=== PATIENT | female | born 1970 | race Hispanic/Latino ===

== ENCOUNTER 2019-04-20 14:48 | Emergency (ER) | payer OTHER, SELFPAY ==
--- NOTE | ~2019-04-20 | CT_ITS ---
EXAMINATION: CT brain wo con EXAM DATE: 04/20/2019 15:47 INDICATION: Headache, dizziness. TECHNIQUE: Spiral CT of the head was performed without contrast. Axial, coronal and sagittal images were reviewed. The dose-length product (DLP) for this examination was 605.33 mGy-cm. The exposure w as tailored according to patient size, and iterative reconstruction (ASIR) was used as additional dos e reduction technique. Comparison is made to prior examination from 06/12/2013. FINDINGS: There is no acute intraparenchymal hemorrhage. No evidence of intraparenchymal brain mass lesion. No evidence of acute infarction. There is no mass effect or midline shift. The ventricles are normal in size. There are no extra-axial collections. There are no acute calvarial fractures. T he orbits are unremarkable. Soft tissue is unremarkable. The visualized sinuses and mastoid air simone ls are well aerated. IMPRESSION: 1. Normal head CT examination. Reviewed, dictated and finalized at location A. [employer]
[2019-04-20 15:04] VITALS: BP 190/115; PULSE 111; RESP 18; TEMP 37; O2SAT 100
--- NOTE | 2019-04-20 15:14 | ED.HA ---
HPI - Headache General Chief Complaint: Headache Stated Complaint: migraine, dizzy when driving Time Seen by Provider: 04/20/19 15:11 Source: patient Mode of arrival: ambulatory Limitations: no limitations History of Present Illness HPI Narrative: The pt is a 48 y/o female who presents to the ED c/o migraines onset 9 days ago. Pt states that she typically gets these with her periods. Pt states that her pain is improved with rest. She notes that four days ago, she began to experience nausea and dizziness while driving. She went to her PCP 3 days ago for this. Pt states that she tried to drive again today and began to experience this again, so she came here. Pt reports difficulty concentrating, but denies numbness/tingling. MD elicited complaint: migraine Onset (ago): day(s) (9) Relieving factors: rest Context: other (Menstruation occurring currently) Associated symptoms: nausea and other (Dizziness, difficulty concentrating) Related Data Allergies Allergy/AdvReac Type Severity Reaction Status Date / Time shellfish derived Allergy Severe THROAT Verified 09/28/18 10:48 SWELLING dextromethorphan Allergy Mild N/V, Verified 09/28/18 10:48 HEADACHE doxylamine Allergy Mild N/V, Verified 09/28/18 10:48 HEADACHE oxytocin Allergy Mild PAIN/SWELLING Verified 09/28/18 10:48 IN ARM Penicillins Allergy Mild Unknown Verified 09/28/18 10:48 prochlorperazine Allergy Mild LOCK JAW Verified 09/28/18 10:48 pseudoephedrine Allergy Mild N/V, Verified 09/28/18 10:48 HEADACHE sulfamethoxazole Allergy Mild N/V, Verified 09/28/18 10:48 HEADACHE, RASH trimethoprim Allergy Mild Nausea and Verified 09/28/18 10:48 Vomiting Review of Systems Review of Systems: All systems reviewed & are unremarkable except as noted in HPI and below Gastrointestinal: Gastrointestinal: Reports nausea Neurologic: Reports dizziness, Reports headache(s) ( Migraines ), Denies numbness, Denies tingling and Reports other (Difficulty concentrating) PMFSH Past Medical History Medical History (Updated 04/20/19 @ 19:48 by Scott Solis DO) Abnormal uterine bleeding Anemia Angina at rest Asthma Fibroids Heart murmur HLD (hyperlipidemia) HTN (hypertension) Lichen sclerosus Migraine During menstruation Uterine polyp Surgical History Surgical History (Updated 04/20/19 @ 15:24 by Lele Angela) H/O section Social History Social History (Updated 04/20/19 @ 15:24 by Lele Angela) Smoking status: Never smoker Comments PCP: Dr. Miner Exam Narrative: Exam Narrative: APPEARANCE: No acute distress, nontoxic, resting in bed HEENT: Normocephalic, atraumatic, OMM, TMs clear bilaterally EYES: PERRL, EOMI NECK: Supple, nontender, full range of motion without pain, no meningismus RESPIRATORY: No respiratory distress, clear to auscultation bilaterally with no rhonchi wheezing or rales CARDIOVASCULAR: RRR s murmur ABDOMINAL: Soft, nontender, nondistended MUSCULOSKELETAL: Moves all extremities. No clubbing, cyanosis or edema. NEURO: A and O ?3, following commands, speech normal, cranial nerves II through XII grossly intact,muscle strength 5 out of 5 bilateral upper and lower extremities SKIN:: Warm, dry. Normal Color PSYCHIATRIC: Normal affect/mood Course Course Emergency Course: Patient states she had been on blood pressure medication was taken off of it last May when she went on weight watchers in the last over 30 pounds. Patient states she is feeling better at this time. Able to get up and ambulate with no difficulty. Called and discussed with Dr. Valadez for patient's primary care physician Dr. miner we discussed the patient renal blood pressure medication likely need new blood pressure medication at this time request patient started on atenolol 50 mg daily Discussed with patient restarting blood pressure medication. Discussed atenolol. The patient states she is very sensitive to blood pressure medication. S
--- NOTE | 2019-04-20 15:18 | ECG_ITS ---
Measurements Intervals [place] Rate: 101 P: 48 MT: 139 QRS: 45 QRSD: 86 T: 8 QT: 349 QTc: 453 Interpretive Statements SINUS TACHYCARDIA ABNORMAL ECG Electronically Signed On 04-21-2019 8:12:45 CDT by Chito Hillman D.O.
[2019-04-20 15:34] LABS: Basophils Percent Auto 0.5 % (0.2-1.2); Eosinophils Absolute Auto 0.1 K/mm3 (0-0.3); Eosinophils Percent Auto 0.8 % (0-4.4); Hematocrit 36.5 % (37.0-47.0); Hemoglobin 10.7 g/dL (12.0-15.0); Immature Granulocyte Absolute 0.03 K/mm3 (0.00-0.031); Immature Granulocyte Percent A 0.3 % (0-0.5); Lymphocytes Percent Auto 30.3 % (18.3-44.2); Mean Corpuscular HGB Conc 29.3 g/dl (32-36); Mean Corpuscular Hemoglobin 21.4 pg (26-34); Mean Corpuscular Volume 72.9 fl (80-100); Monocytes Absolute Auto 0.7 K/mm3 (0.1-0.6); Monocytes Percent Auto 7.7 % (2.6-8.5); Neutrophils Absolute Auto 5.2 K/mm3 (1.3-6.7); Neutrophils Percent Auto 60.4 % (45.5-73.1); Platelet Count Result 420 k/mm3 (150-375); Red Blood Count 5.01 M/mm3 (4.2-5.4); Red Cell Distribution Width 18.6 % (11.5-14.5); White Blood Count 8.6 K/mm3 (4.5-10.0)
[2019-04-20 15:41] LABS: Potassium 3.8 mmol/L (3.4-5.0)
[2019-04-20 15:43] LABS: Alanine Aminotransferase 28 U/L (4-35); Albumin Level 4.5 g/dL (3.5-5.1); Alkaline Phosphatase 66 U/L (38-126); Anisocytosis 1+ (NORMAL); Aspartate Amino Transferase 26 U/L (14-36); Bilirubin,Total 0.2 mg/dL (0.2-1.3); Blood Urea Nitrogen 13 mg/dL (7-17); Calcium 9.3 mg/dL (8.4-10.2); Carbon Dioxide 23 mmol/L (22-30); Chloride 107 mmol/L (98-107); Estimated CRCL calculation 96 ml/min; Estimated Glomerular Filt Rate > 60; Glucose 103 mg/dL (65-105); Hypochromasia 1+ (NORMAL); Platelet Estimate Adequate (Adequate); Prothrombin Time 13.1 Seconds (11.1-14.7); Sodium 140 mmol/L (137-145)
[2019-04-20 15:44] LABS: Partial Thromboplastin Time 26.9 SECONDS (22.3-36.8)
[2019-04-20 15:53] LABS: Troponin I < 0.012 ng/mL (0.000-0.034)
[2019-04-20] MEDS: SODIUM CHLORIDE 0.9% IV 1,000 ML 999 ML IV CONT (15:57)
[2019-04-20 16:29] LABS: Add Urine Microscopic? YES; Appearance Urine Clear (Clear); Bilirubin Urine Negative (Negative); Blood Urine 1+ (Negative); Color Urine Colorless (Yellow); Glucose Urine UA Negative (Negative); Ketones Urine Negative (Negative); Leukocyte Esterase Ur Negative LEU/UL (Negative); Nitrate Urine Negative (Negative); Protein Urine Negative (Negative); Specific Grav Ur 1.005 (1.001-1.035); Squamous Epithelial Cell Urine Rare /hpf (Few); Urobilinogen Urine Negative mg/dL (<2.0); WBC Urine 0-3 /hpf
[2019-04-20] MEDS: KETOROLAC 30 MG/ML VIAL (*BKC) IV PUSH (17:13)
[2019-04-20 17:14] VITALS: BP 179/104; PULSE 92; RESP 20; O2SAT 99
[2019-04-20 18:22] VITALS: BP 152/96; PULSE 100; RESP 20; O2SAT 97
--- NOTE | 2019-04-20 19:16 | PC.NURSE ---
Pt ambulated around nurses station without difficulty. Pt states her head feels better but headache is not gone. EDp made aware.
[2019-04-20 20:02] VITALS: BP 145/80; PULSE 80; RESP 20; TEMP 36.7; O2SAT 98
== END 2019-04-20 20:19 | disposition home or self-care (01) ==
PROVIDERS: Emergency Provider Emergency Medicine; PCP Family Medicine
DX: R51 Headache (principal); I10 Essential (primary) hypertension; J45.909 Unspecified asthma, uncomplicated; E78.5 Hyperlipidemia, unspecified; L90.0 Lichen sclerosus et atrophicus; R00.0 Tachycardia, unspecified
CPT/HCPCS: 36415; 70450; 80053; 81001; 81025; 84484; 85025; 85610; 85730; 93005; 96361; 96365; 96375; 99284; J0131; J1200; J1885; J7030

== ENCOUNTER 2019-07-14 12:04 | Emergency (ER) | payer OTHER, SELFPAY ==
--- NOTE | ~2019-07-14 | XR_ITS ---
EXAMINATION: XR chest 2V 07/14/2019 12:33 INDICATION: Shortness of breath PROCEDURE: 2 view chest COMPARISON: No prior studies for comparison. FINDINGS: The lungs are clear. The cardiomediastinal silhouette is within normal limits. There are no pleural effusions. There is no pneumothorax suspected. IMPRESSION: 1: NO ACUTE CARDIOPULMONARY DISEASE. Reviewed, dictated and finalized at location A.
--- NOTE | ~2019-07-14 | CT_ITS ---
EXAMINATION: CTA chest PE protocol DATE: 07/14/2019 14:00 CDT INDICATION: Dyspnea. Tachycardia. TECHNIQUE: Computed tomographic angiography (CTA) of the chest was performed with 100 mL Omnipaque-35 0 intravenous contrast. The dose-length product was 518.08 mGy-cm. Maximum intensity projection 3D-re constructions of the aorta and other arteries were constructed by the technologist on a separate work station. Automated exposure control and iterative reconstruction technique were employed. COMPARISON: CT dated 04/22/2014 FINDINGS: Study is technically adequate without evidence for pulmonary embolism. No thoracic lymphade nopathy. No significant pleural or pericardial effusion. Heart size is normal. Small hiatal hernia. N o endobronchial lesions. No focal airspace consolidation. No evidence for pneumonia or edema. The upp er abdomen is unremarkable. Mild thoracic spondylosis. No evidence for aortic aneurysm or dissection. IMPRESSION: 1. No evidence for pulmonary embolism. No acute cardiopulmonary disease. Reviewed, dictated and finalized at location A.
[2019-07-14 12:06] VITALS: BP 155/97; PULSE 124; RESP 18; TEMP 36.7; O2SAT 100
--- NOTE | 2019-07-14 12:15 | ECG_ITS ---
Measurements Intervals [place] Rate: 120 P: 61 SC: 133 QRS: 59 QRSD: 83 T: 16 QT: 339 QTc: 479 Interpretive Statements SINUS TACHYCARDIA NONSPECIFIC ST & T-WAVE ABNORMALITY- ANTEROLAT/INF LEADS BASELINE WANDER- I, II, III ABNORMAL ECG Electronically Signed On 07-15-2019 13:31:54 CDT by Chito Hillman D.O.
[2019-07-14 12:26] LABS: Basophils Percent Auto 0.3 % (0.2-1.2); Eosinophils Percent Auto 0.3 % (0-4.4); Hematocrit 37.2 % (37.0-47.0); Hemoglobin 11.3 g/dL (12.0-15.0); Immature Granulocyte Absolute 0.06 K/mm3 (0.00-0.031); Immature Granulocyte Percent A 0.5 % (0-0.5); Lymphocytes Percent Auto 19.3 % (18.3-44.2); Mean Corpuscular HGB Conc 30.4 g/dl (32-36); Mean Corpuscular Hemoglobin 22.5 pg (26-34); Mean Corpuscular Volume 74.1 fl (80-100); Mean Platelet Volume 10.6 fl (7.4-10.4); Monocytes Absolute Auto 0.8 K/mm3 (0.1-0.6); Monocytes Percent Auto 6.3 % (2.6-8.5); Neutrophils Absolute Auto 8.7 K/mm3 (1.3-6.7); Neutrophils Percent Auto 73.3 % (45.5-73.1); Platelet Count Result 517 k/mm3 (150-375); Red Blood Count 5.02 M/mm3 (4.2-5.4); Red Cell Distribution Width 16.2 % (11.5-14.5); White Blood Count 11.9 K/mm3 (4.5-10.0)
[2019-07-14 12:27] VITALS: PULSE 128
--- NOTE | 2019-07-14 12:30 | PC.NURSE ---
Pt states she was cleaning a couple weeks ago and then started having SOB. Pt states her albuterol inhaler was not working. Pt states she was given steroid taper by her PCP. Pt states the steroids made her BP elevate. Pt states she last took steroids 5 days ago. Pt states she has had 2 wks of unrelieved SOB. Pt states she has only taken albuterol inhaler due to flovent made her breathing worse. Pt states she was supposed to change her BP meds but the asthma flair up started and the PCP wanted to get her breathing under control first. Pt can't lay flat. Pt not using any accessory muscles. Pt not doing pursed lip breathing or nasal flaring. Pt is A&Ox4. Pt has family at bedside. Pt has call light in reach. Pt lung sounds diminished throughout.
--- NOTE | 2019-07-14 12:32 | ED.GENADULT ---
HPI - General Adult General Chief complaint: Unspecified Stated complaint: asthma Time Seen by Provider: 07/14/19 12:22 Source: patient Mode of arrival: ambulatory Limitations: no limitations History of Present Illness HPI narrative: Patient is a 49-year-old female who presents for evaluation of shortness of breath. Patient reports 2 weeks of worsening shortness of breath, and a tight sensation under her breasts. Patient also reports back pain without shoulder or neck pain. She reports that this is been going on for 2 weeks, initially she and her primary care provider attributed this to her asthma, patient has been on DuoNeb treatments, steroid treatments without any improvement in her symptoms. No lower leg swelling, lower leg pain or redness. No history of blood clot. No recent travel. Patient reports dry cough without congestion. No coronavirus exposures, patient otherwise works at a [employer] business, but otherwise has been isolating at home. No recent sick contacts. No flank pain, myalgias or diarrhea. No fever. No recent surgeries or recent immobility. Related Data Allergies Allergy/AdvReac Type Severity Reaction Status Date / Time shellfish derived Allergy Severe THROAT Verified 09/28/18 10:48 SWELLING dextromethorphan Allergy Mild N/V, Verified 09/28/18 10:48 HEADACHE doxylamine Allergy Mild N/V, Verified 09/28/18 10:48 HEADACHE oxytocin Allergy Mild PAIN/SWELLING Verified 09/28/18 10:48 IN ARM Penicillins Allergy Mild Unknown Verified 09/28/18 10:48 prochlorperazine Allergy Mild LOCK JAW Verified 09/28/18 10:48 pseudoephedrine Allergy Mild N/V, Verified 09/28/18 10:48 HEADACHE sulfamethoxazole Allergy Mild N/V, Verified 09/28/18 10:48 HEADACHE, RASH trimethoprim Allergy Mild Nausea and Verified 09/28/18 10:48 Vomiting Review of Systems Review of Systems: Narrative: CONSTITUTIONAL: Denies fever, chills, or sweats. EYES: Denies visual changes, redness, or discharge. ENT: Reports rhinorrhea and congestion CARDIOVASCULAR: Reports chest pain and palpitations RESPIRATORY: Reports dry cough and shortness of breath GASTROINTESTINAL: Denies abdominal pain, nausea, vomiting, or diarrhea. GENITOURINARY: Denies dysuria or hematuria. SKIN: Denies rash or itching. MUSCULOSKELETAL: Denies back pain, joint pain, or myalgia. NEUROLOGIC: Denies headache, numbness, or weakness. [facility] Past Medical History Medical History Abnormal uterine bleeding Anemia Angina at rest Asthma Fibroids Heart murmur HLD (hyperlipidemia) HTN (hypertension) Lichen sclerosus Migraine During menstruation Uterine polyp Surgical History Surgical History H/O section Social History Social History Smoking status: Never smoker Gender identity (if verbalized by the patient): Female Exam Narrative: Exam Narrative: GENERAL: Awake, alert, conversant HEAD: Normocephalic, atraumatic. EYES: PERRLA and EOMI. ENT: Nares clear, no rhinorrhea or epistaxis. Mucous membranes moist. NECK: Supple. CHEST: No respiratory distress, breathing even and non labored, no chest wall tenderness HEART: Tachycardic rate, sinus rhythm ABDOMEN:Non distended, non tender EXTREMITIES: Normal range of motion. No edema. SKIN: Warm, dry, no rash. NEURO:No focal deficits. Alert and oriented x3 Course Course Emergency Course: Patient presented to the emergency department for evaluation of shortness of breath. At the time of initial assessment, ABCs are intact, vital signs notable for hypertension and tachycardia. Patient is afebrile, no infectious type symptoms. Symptoms have been present over 2 weeks and constant, the patient does not appear to be in any respiratory distress in the room. Oxygen saturation is 99% on room air, patient is able to speak in full s
[2019-07-14 12:37] LABS: Potassium 3.6 mmol/L (3.4-5.0)
[2019-07-14 12:42] LABS: Blood Urea Nitrogen 8 mg/dL (7-17); Calcium 9.5 mg/dL (8.4-10.2); Carbon Dioxide 20 mmol/L (22-30); Chloride 107 mmol/L (98-107); Estimated CRCL calculation 89 ml/min; Estimated Glomerular Filt Rate > 60; Glucose 130 mg/dL (65-105); Sodium 140 mmol/L (137-145)
[2019-07-14 13:08] LABS: NT Pro B Type Natriuretic Pept 26 PG/ML (5-100); Troponin I < 0.012 ng/mL (0.000-0.034)
--- NOTE | 2019-07-14 14:26 | PC.NURSE ---
PATIENT AMBULATED WITH PULSE OX. PATIENT'S OXYGEN SATURATION MAINTAINED AT 99-100%. WHEN FINISHED PT STATED SHE WAS WORKING HARDER TO BREATHE. EDP NOTIFIED.
== END 2019-07-14 14:37 | disposition home or self-care (01) ==
PROVIDERS: Emergency Provider Emergency Medicine; PCP Family Medicine
DX: R06.00 Dyspnea, unspecified (principal); R00.0 Tachycardia, unspecified; J45.909 Unspecified asthma, uncomplicated; E78.5 Hyperlipidemia, unspecified; I10 Essential (primary) hypertension; R94.31 Abnormal electrocardiogram [ECG] [EKG]
CPT/HCPCS: 36415; 71046; 71275; 80048; 81025; 83880; 84443; 84484; 85025; 93005; 99284; Q9967

== ENCOUNTER 2019-07-30 10:32 | Outpatient (CLI) | payer OTHER, SELFPAY ==
--- NOTE | 2019-07-30 10:41 | ECHO_ITS ---
Patient Info Name: Isis Fontana Age: 49 years : 1970 Gender: Female Ht: 63 in Wt: 194 lbs BSA: 2.02 m2 HR: 110 bpm BP: 158 / 103 mmHg Heart Rhythm: Sinus Rhythm Exam Date: 07/30/2019 10:58 AM Exam Location: [facility] Pulmonary Patient Status: Outpatient Admit Date: 07/30/2019 Staff Ordering Physician: Chito Hillman DO Justice Professor: Elizabeth Wolf RDCS Attending Provider: Chito Hillman DO Referring Physician: Rafy SHIRLEY; Exam Type: CA echo doppler color flow Study Info Indications R06.02 - Shortness of breath Complete two-dimensional, color flow and Doppler transthoracic echocardiogram is performed. Summary 1. Left ventricular chamber dimension is normal. 2. Left ventricular systolic function is normal, estimated at 55-60%. 3. The left ventricular diastolic function is grade I diastolic dysfunction. 4. E/e' 8 is minimally elevated. 5. Left atrial chamber dimension is mildly enlarged. 6. There is trace tricuspid valve regurgitation. Left Ventricle E/e' 8 is minimally elevated. Left ventricular chamber dimension is normal. Left ventricular systolic function is normal, estimated at 55-60%. The left ventricular diastolic function is grade I diastolic dysfunction. Right Ventricle Right ventricular chamber dimension is normal. Right ventricular systolic function is normal. Left Atria Left atrial chamber dimension is mildly enlarged. Right Atria Right atrial chamber dimension is normal. Aortic Valve The aortic valve is trileaflet. There is no aortic valve stenosis. There is no aortic valve regurgitation. Pulmonic Valve There is no pulmonic regurgitation. Mitral Valve There is no mitral valve stenosis. There is no mitral valve regurgitation. Tricuspid Valve There is trace tricuspid valve regurgitation. RVSP is not calculated due to an inadequate TR jet. Pericardium/Pleural There is no pericardial effusion. Inferior Vena Cava Normal inferior vena cava with >50% collapse upon inspiration consistent with normal right atrial pressure, 5 mmHg. Aorta The aortic root size at the sinus of Valsalva is normal. Left Ventricular Outflow Tract Name Value Normal LVOT 2D LVOT Diameter 1.9 cm LVOT Doppler LVOT Peak Gradient 4 mmHg LVOT Mean Gradient 2 mmHg LVOT VTI 26 cm LVOT VTI/AV VTI Ratio 0.8 LVOT Stroke Volume 72 ml LVOT CO 10.8 l/min LVOT CI 5.4 l/min/m2 Pulmonic Valve Name Value Normal RVOT Doppler RVOT Peak Gradient 2 mmHg PV Doppler PV Peak Gradient 4 mmHg Mitral Valve --------
== END 2019-07-30 10:33 | disposition home or self-care (01) ==
LOC: ANHCARD 10:34
PROVIDERS: PCP Family Medicine; Visit Provider Internal Medicine Cardiovascular Disease
DX: R06.02 Shortness of breath (principal)
CPT/HCPCS: 93306

== ENCOUNTER 2019-08-13 09:04 | Outpatient (CLI) | payer OTHER, SELFPAY ==
--- NOTE | ~2019-08-13 | XR_ITS ---
EXAMINATION: XR UGIAC wo kub DATE: 08/13/2019 09:56 INDICATION: Gastroesophageal reflux disease. TECHNIQUE: The patient drank thick barium, gas-producing crystals, and thin barium. A total of fluoro scopic images of the esophagus, stomach, and proximal small bowel were obtained. Fluoroscopy exposure time was minutes. COMPARISON: None. FINDINGS: The esophagus is normal without mass or stricture. Esophageal motility is normal. There is no hiatal hernia. There was recurrent gastroesophageal reflux of gas and moderate amount of contrast with provocative maneuvers. The stomach and proximal small bowel are normal. IMPRESSION: 1. Gastroesophageal reflux. Otherwise normal upper GI study. Reviewed, dictated and finalized at location A.
== END 2019-08-13 09:05 | disposition home or self-care (01) ==
LOC: ANHIMG 09:12
PROVIDERS: PCP Family Medicine; Visit Provider Family Medicine
DX: K21.9 Gastro-esophageal reflux disease without esophagitis (principal)
CPT/HCPCS: 74246

== ENCOUNTER 2022-08-14 17:22 | Emergency (ER) | payer SELFPAY ==
--- NOTE | ~2022-08-14 | CT_ITS ---
EXAMINATION: CT abdomen pelvis w con DATE: 08/14/2022 19:25 INDICATION: Left-sided flank pain radiating to the abdomen TECHNIQUE: Computed tomography (CT) of the abdomen and pelvis was performed with 100 mL Omnipaque-350 intravenous contrast. Automated exposure control and iterative reconstruction technique were employe d. The dose-length product was 1253.59 mGy-cm. COMPARISON: None FINDINGS: Lung bases are clear. Heart size is normal. No pericardial or pleural effusion. Diffuse hepatic steat osis with focal sparing along the gallbladder fossa. Gallbladder, spleen, pancreas, bilateral adrenal glands and kidneys are normal. Bowels including the appendix are normal. Bladder, anteverted uterus and bilateral adnexa are unremarkable. No free intraperitoneal gas or fluid. No pathologically enlarg ed abdominal or pelvic lymphadenopathy. Mild lumbar and lower thoracic spondylosis. IMPRESSION: 1. No urolithiasis or acute intra-abdominal/pelvic process. 2. Diffuse hepatic steatosis. Reviewed, dictated and finalized at location A.
[2022-08-14 17:23] VITALS: BP 162/109; PULSE 120; RESP 18; TEMP 36.4; O2SAT 99
[2022-08-14 17:41] VITALS: BP 200/107; PULSE 132; RESP 20; O2SAT 98
[2022-08-14 17:47] VITALS: BP 211/111; PULSE 125; RESP 12; O2SAT 94
[2022-08-14 17:54] LABS: Basophils Absolute Auto 0.1 K/mm3 (0.0-0.1); Basophils Percent Auto 0.5 % (0.2-1.2); Eosinophils Percent Auto 0.3 % (0-4.4); Hematocrit 45.7 % (37.0-47.0); Hemoglobin 14.7 g/dL (12.0-15.0); Immature Granulocyte Absolute 0.03 K/mm3 (0.00-0.031); Immature Granulocyte Percent A 0.3 % (0-0.5); Lymphocytes Absolute Auto 2.97 K/mm3 (0.9-3.2); Lymphocytes Percent Auto 29.3 % (18.3-44.2); Mean Corpuscular HGB Conc 32.2 g/dl (32-36); Mean Corpuscular Hemoglobin 26.3 pg (26-34); Mean Corpuscular Volume 81.8 fl (80-100); Mean Platelet Volume 10.4 fl (7.4-10.4); Monocytes Absolute Auto 0.9 K/mm3 (0.1-0.6); Monocytes Percent Auto 8.4 % (2.6-8.5); Neutrophils Absolute Auto 6.2 K/mm3 (1.3-6.7); Neutrophils Percent Auto 61.2 % (45.5-73.1); Platelet Count Result 396 k/mm3 (150-375); Red Blood Count 5.59 M/mm3 (4.2-5.4); Red Cell Distribution Width 14.1 % (11.5-14.5); White Blood Count 10.1 K/mm3 (4.5-10.0)
[2022-08-14 18:04] LABS: Alanine Aminotransferase 73 U/L (6-35); Albumin Level 5.1 g/dL (3.5-5.1); Alkaline Phosphatase 99 U/L (38-126); Anion Gap 12 mmol/L (8-16); Aspartate Amino Transferase 53 U/L (14-36); Bilirubin,Total 0.4 mg/dL (0.2-1.3); Blood Urea Nitrogen 11 mg/dL (7-17); Calcium 9.9 mg/dL (8.4-10.2); Carbon Dioxide 22 mmol/L (22-30); Chloride 108 mmol/L (98-107); Estimated CRCL calculation 91 ml/min; Estimated Glomerular Filt Rate > 60; Glucose 116 mg/dL (65-110); Lipase 161 U/L (23-300); Potassium 3.8 mmol/L (3.4-5.0); Sodium 142 mmol/L (137-145)
[2022-08-14 18:05] VITALS: PULSE 110; RESP 16; O2SAT 98
[2022-08-14 18:18] LABS: Appearance Urine Clear (Clear); Bacteria Urine None Seen /hpf; Bilirubin Urine Negative (Negative); Blood Urine Trace (Negative); Color Urine Yellow (Yellow); Glucose Urine UA Negative (Negative); Hyaline Casts Urine Present /lpf; Ketones Urine Negative (Negative); Leukocyte Esterase Ur Negative LEU/UL (Negative); Nitrate Urine Negative (Negative); Non Pathogenic Casts 0-2; Protein Urine Negative (Negative); RBC Urine 0-2 /hpf (0-2); Specific Grav Ur 1.004 (1.001-1.035); Squamous Epithelial Cell Urine None seen /hpf (Few); Urobilinogen Urine 0.2 mg/dL (<2.0); WBC Urine 0-5 /hpf; pH Urine 5.5 (5.0-9.0)
[2022-08-14 18:21] LABS: Add Urine Microscopic? YES
--- NOTE | 2022-08-14 18:33 | ED.ABDPAIN ---
HPI - Abdominal Pain General Chief Complaint: Urogenital-Female Stated Complaint: kidney stone Time Seen by Provider: 08/14/22 17:33 Source: patient Mode of arrival: ambulatory Limitations: no limitations History of Present Illness HPI narrative: This is a 52-year-old female that presents to the emergency department for left flank pain. Ongoing over the last week. Reports the pain is constant and radiates into the left side of her abdomen. Sometimes it is worse with certain movements. The pain is achy in nature. Associated with nausea. Denies fever, vomiting, diarrhea, dysuria, or hematuria. Related Data Home Medications Medication Instructions Recorded Confirmed albuterol 90 mcg/actuation aerosol 90 mcg inhalation .COMPLEX 07/22/19 07/23/19 inhaler clobetasol 0.05 % topical ointment 1 applic topical BID 07/22/19 07/23/19 multivitamin (Multiple Vitamins 1 tablet PO DAILY 07/23/19 07/23/19 tablet) Allergies Allergy/AdvReac Type Severity Reaction Status Date / Time shellfish derived Allergy Severe THROAT Verified 07/23/19 10:48 SWELLING dextromethorphan Allergy Mild N/V, Verified 07/23/19 10:48 HEADACHE doxylamine Allergy Mild N/V, Verified 07/23/19 10:48 HEADACHE oxytocin Allergy Mild PAIN/SWELLING Verified 07/23/19 10:48 IN ARM Penicillins Allergy Mild Unknown Verified 07/23/19 10:48 prochlorperazine Allergy Mild LOCK JAW Verified 07/23/19 10:48 pseudoephedrine Allergy Mild N/V, Verified 07/23/19 10:48 HEADACHE sulfamethoxazole Allergy Mild N/V, Verified 07/23/19 10:48 HEADACHE, RASH trimethoprim Allergy Mild Nausea and Verified 09/28/18 10:48 Vomiting Review of Systems Review of Systems: CONSTITUTIONAL: Denies fever GASTROINTESTINAL: Reports abdominal pain, nausea. Denies vomiting, or diarrhea. GENITOURINARY: Denies dysuria or hematuria. SKIN: Denies rash All systems reviewed & are unremarkable except as noted in HPI and below PMFSH Past Medical History Medical History (Updated 08/14/22 @ 19:51 by Sindy Chun PA-C) Abnormal uterine bleeding Anemia Angina at rest Asthma Fibroids Heart murmur HLD (hyperlipidemia) HTN (hypertension) Lichen sclerosus Migraine During menstruation Uterine polyp Surgical History Surgical History H/O section Social History Social History Smoking status: Never smoker Gender identity (if verbalized by the patient): Female Exam Narrative: GENERAL: Well-appearing, well-nourished, and in no acute distress. HEAD: Normocephalic, atraumatic. EYES: EOMI. CHEST: Clear to auscultation. No respiratory distress. No wheezes rales or rhonchi HEART: Regular rate and rhythm. No murmur heard. Normal peripheral pulses. ABDOMEN: Soft, nondistended, normal active bowel sounds. Tender to palpation of the left mid to lower abdomen. No CVA tenderness EXTREMITIES: Normal range of motion. No edema. SKIN: Warm, dry, no rash. NEURO: No focal deficits. Alert and oriented x3. PSYCH: Normal mood and affect Course Vital Signs Vital signs: Vital Signs Temperature 97.6 F 08/14/22 17:23 Pulse Rate 120 H 08/14/22 17:23 Respiratory Rate 18 08/14/22 17:23 Blood Pressure 162/109 H 08/14/22 17:23 Pulse Oximetry 99 08/14/22 17:23 Oxygen Delivery Room Air 08/14/22 17:23 Temperature 98.3 F 08/14/22 18:39 Pulse Rate 121 H 08/14/22 18:39 Respiratory Rate 14 08/14/22 18:39 Blood Pressure 172/107 H 08/14/22 18:39 Pulse Oximetry 99 08/14/22 18:39 Oxygen Delivery Room Air 08/14/22 17:23 MDM - Abdominal Pain MDM Narrative Medical decision making narrative: Patient presented to the ER for left flank pain radiating into left abdomen. She is afebrile and nontoxic appearing. Tachycardic upon arrival, this improved with IV fluid administration. Hypertensive upon arrival, this
[2022-08-14 18:39] VITALS: BP 172/107; PULSE 121; RESP 14; TEMP 36.8; O2SAT 99
[2022-08-14] MEDS: SODIUM CHLORIDE 0.9% IV 1,000 ML 999 ML IV CONT (19:22)
[2022-08-14 19:57] VITALS: BP 148/90; PULSE 104; RESP 13; O2SAT 98
== END 2022-08-14 23:31 | disposition home or self-care (01) ==
PROVIDERS: Emergency Provider Physician Assistant
DX: R10.9 Unspecified abdominal pain (principal); K76.0 Fatty (change of) liver, not elsewhere classified; D64.9 Anemia, unspecified; J45.909 Unspecified asthma, uncomplicated; I10 Essential (primary) hypertension
CPT/HCPCS: 36415; 74177; 80053; 81001; 81025; 83690; 85025; 99284; J7030; Q9967

== ENCOUNTER 2023-03-03 15:39 | Emergency (ER) | payer SELFPAY ==
[2023-03-03 15:41] VITALS: BP 195/113; PULSE 128; RESP 20; TEMP 36.4; O2SAT 100
--- NOTE | 2023-03-03 18:40 | ED.GENADULT ---
HPI - General Adult General Chief complaint: Skin/Abscess/Foreign Body Stated complaint: post covid rash Time Seen by Provider: 03/03/23 18:39 History of Present Illness HPI narrative: Patient is a 52-year-old female here with a rash. She states that she had COVID about a month ago, the last 2 weeks she has been dealing with a diffuse rash. She notes that initially started on her wrist and a dorsum of bilateral hands. Has now progressed to involve bilateral arms as well as her trunk and her legs. She notes it is significantly itchy. She has been using Benadryl, calamine lotion, hydrocortisone cream. She has no primary care doctor but today did a tele health visit with the [facility] system and they recommended she come into the emergency department for evaluation. She denies any associated shortness of breath, nausea or vomiting. No prior history of allergic reaction or skin disease. She notes history of bad reaction to prednisone with shortness of breath, shaking, chest tightness and avoids this since that time. Related Data Home Medications Medication Instructions Recorded Confirmed albuterol 90 mcg/actuation aerosol 90 mcg inhalation .COMPLEX 07/22/19 07/23/19 inhaler clobetasol 0.05 % topical ointment 1 applic topical BID 07/22/19 07/23/19 multivitamin (Multiple Vitamins 1 tablet PO DAILY 07/23/19 07/23/19 tablet) Allergies Allergy/AdvReac Type Severity Reaction Status Date / Time shellfish derived Allergy Severe THROAT Verified 03/03/23 15:40 SWELLING dextromethorphan Allergy Mild N/V, Verified 03/03/23 15:40 HEADACHE doxylamine Allergy Mild N/V, Verified 03/03/23 15:40 HEADACHE oxytocin Allergy Mild PAIN/SWELLING Verified 03/03/23 15:40 IN ARM Penicillins Allergy Mild Unknown Verified 03/03/23 15:40 prochlorperazine Allergy Mild LOCK JAW Verified 03/03/23 15:40 pseudoephedrine Allergy Mild N/V, Verified 03/03/23 15:40 HEADACHE sulfamethoxazole Allergy Mild N/V, Verified 03/03/23 15:40 HEADACHE, RASH trimethoprim Allergy Mild Nausea and Verified 03/03/23 15:40 Vomiting Review of Systems Review of Systems: All systems reviewed & are unremarkable except as noted in HPI and below PMFSH Past Medical History Medical History (Updated 03/03/23 @ 19:12 by Sarita Morales MD) Abnormal uterine bleeding Anemia Angina at rest Asthma Fibroids Heart murmur HLD (hyperlipidemia) HTN (hypertension) Lichen sclerosus Migraine During menstruation Uterine polyp Surgical History Surgical History H/O section Social History Social History Smoking status: Never smoker Gender identity (if verbalized by the patient): Female Exam Narrative: GENERAL: Well-appearing, well-nourished, and in no acute distress. HEAD: Normocephalic, atraumatic. EYES: PERRLA and EOMI. ENT: Nares clear. Mucous membranes moist. NECK: Supple. CHEST: Clear to auscultation. No respiratory distress. HEART: Regular rate and rhythm. Normal peripheral pulses. ABDOMEN: Soft, nontender, nondistended. EXTREMITIES: Normal range of motion. No edema. SKIN: Warm, dry, urticarial rash over bilateral anterior thighs, bilateral upper extremities, bilateral gluteus. No vesicular lesions appreciated. NEURO: No focal deficits. Alert and oriented x3. PSYCH: Normal mood and affect. Course Course Emergency Course: Chart review performed. Patient here for rash. Triage vitals show HTN, tachycardia. Last visit here was in August of 2022, she was seen for flank pain. They note history of HTN, asthma, heart murmur, migraines. Patient seen evaluated, nontoxic appearing. Discussed that rash appears to be urticaria in nature. Did offer steroids however given her poor reaction in the past she declines. Will start on pepcid in addition to benadryl and topical steroid cream she is using. The results of
[2023-03-03] MEDS: FAMOTIDINE 20 MG TABLET 40 MG PO (20:31)
== END 2023-03-03 20:35 | disposition home or self-care (01) ==
LOC: ANHED 19:19
PROVIDERS: Emergency Provider Student in an Organized Health Care Education/Training Program
DX: L50.9 Urticaria, unspecified (principal); J45.909 Unspecified asthma, uncomplicated; E78.5 Hyperlipidemia, unspecified; I10 Essential (primary) hypertension; Z86.2 Personal history of diseases of the blood and blood-forming organs and certain disorders involving the immune mechanism; Z86.16 Personal history of COVID-19
CPT/HCPCS: 99283; A9270

== ENCOUNTER 2023-03-21 19:31 | Inpatient (IN) | payer SELFPAY ==
--- NOTE | ~2023-03-21 | XR_ITS ---
EXAMINATION: XR chest 2V DATE: 03/22/2023 17:45 INDICATION: Diabetic ketoacidosis. TECHNIQUE: Frontal and lateral views of the chest were obtained. COMPARISON: Chest 2 views 07/14/2019, CT abdomen and pelvis 08/14/2022 FINDINGS: There is no pneumonia, pleural effusion, or pneumothorax. The heart size is normal. IMPRESSION: 1. No acute cardiopulmonary disease. Reviewed, dictated and finalized at location E. O FREQUENCY TECHNICIAN
[2023-03-21 19:46] VITALS: BP 158/105; PULSE 129; RESP 19; TEMP 36.5; O2SAT 98
[2023-03-21 19:50] LABS: Basophils Absolute Auto 0.1 K/mm3 (0.0-0.1); Basophils Percent Auto 0.9 % (0.2-1.2); Eosinophils Absolute Auto 0.1 K/mm3 (0-0.3); Eosinophils Percent Auto 0.9 % (0-4.4); Hematocrit 50.6 % (37.0-47.0); Hemoglobin 15.1 g/dL (12.0-15.0); Immature Granulocyte Absolute 0.03 K/mm3 (0.00-0.031); Immature Granulocyte Percent A 0.3 % (0-0.5); Lymphocytes Absolute Auto 3.02 K/mm3 (0.9-3.2); Mean Corpuscular HGB Conc 29.8 g/dl (32-36); Mean Corpuscular Hemoglobin 25.6 pg (26-34); Mean Corpuscular Volume 85.9 fl (80-100); Mean Platelet Volume 11.9 fl (7.4-10.4); Monocytes Absolute Auto 0.8 K/mm3 (0.1-0.6); Monocytes Percent Auto 7.6 % (2.6-8.5); Neutrophils Absolute Auto 6.7 K/mm3 (1.3-6.7); Neutrophils Percent Auto 62.3 % (45.5-73.1); Platelet Count Result 384 k/mm3 (150-375); Red Blood Count 5.89 M/mm3 (4.2-5.4); White Blood Count 10.8 K/mm3 (4.5-10.0)
[2023-03-21 20:08] LABS: Hypochromasia 1+ (NORMAL); Platelet Estimate Increased (Adequate); Schistocytes None Seen (NORMAL)
[2023-03-21 20:16] LABS: Alanine Aminotransferase 45 U/L (6-35); Alkaline Phosphatase 154 U/L (38-126); Anion Gap 25 mmol/L (8-16); Aspartate Amino Transferase 28 U/L (14-36); Bilirubin,Total 0.9 mg/dL (0.2-1.3); Blood Urea Nitrogen 14 mg/dL (7-17); Calcium 9.9 mg/dL (8.4-10.2); Carbon Dioxide 10 mmol/L (22-30); Chloride 100 mmol/L (98-107); Estimated CRCL calculation 64 ml/min; Estimated Glomerular Filt Rate 58; Lipase 273 U/L (23-300); Potassium 4.6 mmol/L (3.4-5.0); Sodium 135 mmol/L (137-145)
[2023-03-21 20:39] LABS: Glucose 733 mg/dL (65-110)
[2023-03-21 20:43] VITALS: PULSE 133
[2023-03-21 20:44] VITALS: BP 188/124; PULSE 131; RESP 18; TEMP 36.5; O2SAT 98
[2023-03-21 21:10] LABS: Appearance Urine Clear (Clear); Bacteria Urine None Seen /hpf; Bilirubin Urine Negative (Negative); Color Urine Yellow (Yellow); Glucose Urine UA 3+ mg/dL (Negative); Ketones Urine 4+ mg/dL (Negative); Leukocyte Esterase Ur Negative LEU/UL (Negative); Need Manual Microscopic Reviewed; Nitrate Urine Negative (Negative); Protein Urine 1+ mg/dL (Negative); RBC Urine 0-2 /hpf (0-2); Squamous Epithelial Cell Urine None seen /hpf (Few); Urobilinogen Urine 0.2 mg/dL (<2.0); WBC Urine 0-5 /hpf
[2023-03-21 21:11] LABS: Add Urine Microscopic? YES; Specific Grav Ur 1.041 (1.001-1.035)
[2023-03-21] MEDS: SODIUM CHLORIDE 0.9% IV 1,000 ML 999 ML IV CONT ×3 (21:16→22:38)
[2023-03-21] MEDS: ONDANSETRON INJ 4 MG/2 ML VIAL IV PUSH (21:23)
[2023-03-21 21:38] LABS: Alveolar/Arterial O2 Gradient 26.3 mmHg; Base Excess ABG -11.8 mEq/l (+/-2.0); Device ROOM AIR; Fractional Inspired Oxygen 21 %; HCO3 ABG 12.2 mEq/l (22.0-26.0); Modified Allen's Test Pass; Oxygen Content ABG 20.9 %vol (16.0-22.0); Oxygen Saturation ABG 96.8 % (95.0-100.0); Oxyhemoglobin 95.8 % THb (90.0-100.0); PCO2 ABG 24.3 mmHg (35.0-45.0); PO2 ABG 94.3 mmHg (80.0-100.0); PO2 FiO2 Ratio Arterial Blood 4.49 %; Site Drawn LEFT RADIAL; Total Hemoglobin 15.5 g/dL (12.0-18.0); pH ABG 7.318 (7.350-7.450)
[2023-03-21 22:07] LABS: Hemoglobin A1C 13.5 % (<5.7)
[2023-03-21] MEDS: INSULIN HUMAN REGULAR (*BKC) 100 UNITS/ML 14 UNITS IV PUSH (22:12)
[2023-03-21 22:34] VITALS: BP 193/102; PULSE 123; RESP 18; O2SAT 100
[2023-03-21 22:43] LABS: Glucose Point of Care > 500 mg/dl (65-105)
[2023-03-21] MEDS: INSULIN HUMAN REGULAR (*BKC) 100 UNITS in SODIUM CHLORIDE 0.9% IV 99 ML 9.5 UNITS IV CONT (22:48)
[2023-03-21] MEDS: SODIUM CHLORIDE 0.9% IV 1,000 ML 150 ML IV CONT (22:49)
--- NOTE | 2023-03-21 23:16 | ED.GENADULT ---
HPI - General Adult General Chief complaint: Nausea/Vomiting/Diarrhea Stated complaint: N/V/blurry vision Time Seen by Provider: 03/21/23 20:49 History of Present Illness HPI narrative: patient is a 52-year-old female who presents emergency department with chief complaint of dry mouth blurry vision increased thirst the patient reports that this is been going ongoing for about 3 weeks reports that he keeps getting worse she has early sleeping patient reports no prior history of diabetes does report that she had COVID back in January. Related Data Home Medications Medication Instructions Recorded Confirmed albuterol 90 mcg/actuation aerosol 90 mcg inhalation .COMPLEX 07/22/19 07/23/19 inhaler clobetasol 0.05 % topical ointment 1 applic topical BID 07/22/19 07/23/19 multivitamin (Multiple Vitamins 1 tablet PO DAILY 07/23/19 07/23/19 tablet) Allergies Allergy/AdvReac Type Severity Reaction Status Date / Time shellfish derived Allergy Severe THROAT Verified 03/03/23 15:40 SWELLING dextromethorphan Allergy Mild N/V, Verified 03/03/23 15:40 HEADACHE doxylamine Allergy Mild N/V, Verified 03/03/23 15:40 HEADACHE oxytocin Allergy Mild PAIN/SWELLING Verified 03/03/23 15:40 IN ARM Penicillins Allergy Mild Unknown Verified 03/03/23 15:40 prochlorperazine Allergy Mild LOCK JAW Verified 03/03/23 15:40 pseudoephedrine Allergy Mild N/V, Verified 03/03/23 15:40 HEADACHE sulfamethoxazole Allergy Mild N/V, Verified 03/03/23 15:40 HEADACHE, RASH trimethoprim Allergy Mild Nausea and Verified 03/03/23 15:40 Vomiting Review of Systems Review of Systems: A 10 system review of systems was completed on the patient and is negative except for what is stated in the HPI. Nursing and ancillary documentation was reviewed. [facility] Past Medical History Medical History (Updated 03/21/23 @ 23:20 by Taye Schaefer MD) Abnormal uterine bleeding Anemia Angina at rest Asthma Fibroids Heart murmur HLD (hyperlipidemia) HTN (hypertension) Lichen sclerosus Migraine During menstruation Uterine polyp Surgical History Surgical History H/O section Social History Social History Smoking status: Never smoker Gender identity (if verbalized by the patient): Female Exam Narrative: GENERAL: Well-appearing, well-nourished, and in no acute distress. HEAD: Normocephalic, atraumatic. EYES: PERRLA and EOMI. ENT: Nares clear, no rhinorrhea or epistaxis. Mucous membranes Dry. NECK: Supple. CHEST: Clear to auscultation. No respiratory distress. HEART: Regular rate and rhythm. No murmur heard. Normal peripheral pulses. ABDOMEN: Soft, nontender, nondistended, normal active bowel sounds. EXTREMITIES: Normal range of motion. No edema. SKIN: Warm, dry, no rash. NEURO: No focal deficits. Alert and oriented x3. PSYCH: Normal mood and affect. Course Vital Signs Vital signs: Vital Signs Temperature 36.5 C 03/21/23 19:46 Pulse Rate 129 H 03/21/23 19:46 Respiratory Rate 19 03/21/23 19:46 Blood Pressure 158/105 H 03/21/23 19:46 Pulse Oximetry 98 03/21/23 19:46 Oxygen Delivery Room Air 03/21/23 19:46 Temperature 36.5 C 03/21/23 20:44 Pulse Rate 123 H 03/21/23 22:34 Respiratory Rate 18 03/21/23 22:34 Blood Pressure 193/102 H 03/21/23 22:34 Pulse Oximetry 100 03/21/23 22:34 Oxygen Delivery Room Air 03/21/23 19:46 Medical Decision Making [facility] Narrative Medical decision making narrative: differential diagnosis includes dehydration, diabetes, renal failure, laboratory studies were obtained on the patient which showed a blood sugar of 733. The patient had an anion gap that was elevated at 25 CO2 was 10 blood gas showed a pH 7.31 a beta hydroxybutyrate was elevated at 6.8 hemoglobin A1c is 13.5. Patient
[2023-03-21 23:34] LABS: Anion Gap 24 mmol/L (8-16); Blood Urea Nitrogen 14 mg/dL (7-17); Carbon Dioxide 11 mmol/L (22-30); Chloride 107 mmol/L (98-107); Estimated CRCL calculation 70 ml/min; Estimated Glomerular Filt Rate > 60; Glucose 462 mg/dL (65-110); Potassium 3.6 mmol/L (3.4-5.0); Sodium 142 mmol/L (137-145)
[2023-03-21 23:37] LABS: Magnesium 2.3 mg/dL (1.6-2.3); Phosphorus 2.7 mg/dL (2.5-4.5)
[2023-03-21 23:47] LABS: Glucose Point of Care 356 mg/dl (65-105)
[2023-03-22] VITALS (13 sets, daily range): BP systolic 141–184; BP diastolic 67–101; PULSE 95–119; RESP 12–21; TEMP 36.8–36.9; O2SAT 97–100; BMI 37.2; BMI 37.3
[2023-03-22 00:58] LABS: Glucose Point of Care 274 mg/dl (65-105)
--- NOTE | 2023-03-22 01:21 | ADMGEN ---
This patient, Isis Fontana, was admitted to Intensive Care Unit-7. Patient/family oriented to hospital policies and general routines including ID bracelet, bed and alarms, visiting hours, pain management, procedures, bathroom and other care routines, personal items, smoking policy, room service/diet, and visiting hours. Information on how to activate the Rapid Response Team has been discussed. Patient/Family are encouraged to report perceived risks to care and to ask questions if they do not understand what they are told or what they should do.
[2023-03-22] MEDS: LEVALBUTEROL NEB 1.25 MG/3 ML INHALATION (01:36)
[2023-03-22 02:14] LABS: Glucose Point of Care 256 mg/dl (65-105)
[2023-03-22 03:15] LABS: Anion Gap 12 mmol/L (8-16); Blood Urea Nitrogen 12 mg/dL (7-17); Calcium 8.7 mg/dL (8.4-10.2); Carbon Dioxide 14 mmol/L (22-30); Chloride 118 mmol/L (98-107); Estimated CRCL calculation 89 ml/min; Estimated Glomerular Filt Rate > 60; Glucose 227 mg/dL (65-110); Potassium 4.2 mmol/L (3.4-5.0); Sodium 144 mmol/L (137-145)
[2023-03-22] MEDS: KCL 20 MEQ/D5/0.45% SOD CHL 1,000 ML 150 ML IV CONT (03:29)
[2023-03-22] MEDS: ONDANSETRON INJ 4 MG/2 ML VIAL IV PUSH (03:30)
[2023-03-22 03:39] LABS: Glucose Point of Care 199 mg/dl (65-105)
[2023-03-22 05:14] LABS: Glucose Point of Care 285 mg/dl (65-105)
[2023-03-22 06:13] LABS: Glucose Point of Care 294 mg/dl (65-105)
[2023-03-22 07:34] LABS: Glucose Point of Care 253 mg/dl (65-105)
[2023-03-22] MEDS: SODIUM CHLORIDE 0.9% IV 1,000 ML 150 ML IV CONT (07:45)
[2023-03-22 08:27] LABS: Glucose Point of Care 246 mg/dl (65-105)
[2023-03-22 08:32] LABS: Anion Gap 9 mmol/L (8-16); Blood Urea Nitrogen 11 mg/dL (7-17); Calcium 8.3 mg/dL (8.4-10.2); Carbon Dioxide 18 mmol/L (22-30); Chloride 116 mmol/L (98-107); Estimated CRCL calculation 89 ml/min; Estimated Glomerular Filt Rate > 60; Glucose 285 mg/dL (65-110); Potassium 3.6 mmol/L (3.4-5.0); Sodium 143 mmol/L (137-145)
--- NOTE | 2023-03-22 09:37 | WPDCNINT ---
Assessment and Plan Assessment and plan (1) Diabetic ketoacidosis: Code(s): E11.10 - Type 2 diabetes mellitus with ketoacidosis without coma Status: Acute Assessment and Plan: 03/21: Patient presented with polydipsia, polyuria, blurring of vision, decreased p.o. intake, lethargy and fatigue -in the ER patient was found to be in diabetic ketoacidosis with blood sugars greater than 700, elevated beta hydroxybutyrate and anion gap. UA revealed positive ketones and glucose -patient was given 3 L IV fluids, started on insulin infusion and transferred to the ICU for further management -anion gap has closed this morning, will transition to long-acting insulin and sliding scale insulin -diabetic diet (2) Diabetes mellitus, new onset: Code(s): E11.9 - Type 2 diabetes mellitus without complications Status: Acute Assessment and Plan: New onset diabetes -hemoglobin A1c this admission is 13.5 -patient will be started on Lantus and sliding scale insulin -will have a special education paraeducator and dietitian evaluate the patient Plan DVT prophylaxis: Lovenox Stress ulcer prophylaxis: Not indicated Nutrition: Will start Diabetic diet Code Status: Full code Critical Care Time Spent: 41 minutes Due to a high probability of clinically significant, life threatening deterioration, the patient required my highest level of preparedness to intervene emergently and I personally spent this critical care time directly and personally managing the patient. This critical care time included obtaining a history; examining the patient; pulse oximetry; ordering and review of studies; arranging urgent treatment with development of a management plan; evaluation of patient's response to treatment; frequent reassessment; and discussions with other providers. It was exclusive of separately billable procedures and treating other patients and teaching time. Please see Assessment and Plan section and the rest of the note for further information on patient assessment and treatment This dictation may have been done utilizing a voice recognition system. Attempts have been made to correct errors. However, there may be uncorrected grammatical, spelling, and recognitions errors present. Knife Glazer Consult Note Consult date: 03/22/23 Reason for consult: DKA, blurry vision, Nausea/vomiting, Polyuria and Polydypsia HPI: Isis Fontana is a 52 year old female with no significant past medical history except that she had COVID-19 in January 2023, after which she developed some hives, presented the ED on 03/21/2023 with complains of polyuria, polydipsia for the last 3 weeks, lethargy/fatigue, nausea and vomiting for 3 days, decreased p.o. intake, blurring of vision. In the ER patient was found to have a blood sugar of 733, elevated anion gap and beta hydroxybutyrate, urine analysis showed positive for glucose and ketones, patient was diagnosed with diabetic ketoacidosis, given 3 L IV fluids, started on insulin infusion and transferred to the ICU for further management Patient seen and examined this morning in the ICU, very pleasant patient in no acute distress, states her blurring of vision still persists and then everything that she ate and drank did not taste good at home. Currently denies any chest pain, shortness a breath, abdominal pain, nausea, vomiting. Remains on insulin infusion, anion gap has closed. Urine output has been adequate, afebrile, hemodynamically stable. Denies any illicit drug use, tobacco use or alcohol use. 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
[2023-03-22 09:39] LABS: Glucose Point of Care 281 mg/dl (65-105)
[2023-03-22] MEDS: INSULIN GLARGINE (*BKC) 100 UNITS/ML 30 UNITS SUB-Q (09:53)
[2023-03-22 11:46] LABS: Glucose Point of Care 259 mg/dl (65-105)
[2023-03-22] MEDS: INSULIN ASPART (*BKC) 100 UNITS/ML SUB-Q ×3 (11:50→21:06)
[2023-03-22 11:56] LABS: MRSA (PCR) NOT DETECTED (NOT DETECTE)
[2023-03-22 13:51] LABS: Anion Gap 10 mmol/L (8-16); Blood Urea Nitrogen 10 mg/dL (7-17); Carbon Dioxide 19 mmol/L (22-30); Chloride 115 mmol/L (98-107); Estimated CRCL calculation 89 ml/min; Estimated Glomerular Filt Rate > 60; Potassium 3.5 mmol/L (3.4-5.0); Sodium 144 mmol/L (137-145)
[2023-03-22] MEDS: ENOXAPARIN 40 MG/0.4 ML SYRINGE SUB-Q (13:51)
[2023-03-22 13:52] LABS: Calcium 8.3 mg/dL (8.4-10.2); Glucose 272 mg/dL (65-110)
[2023-03-22 16:35] LABS: Glucose Point of Care 384 mg/dl (65-105)
--- NOTE | 2023-03-22 17:05 | PM.IMHP ---
H&P: HPI History of Present Illness Date/Time: 03/22/23 17:05 Chief Complaint: Vomiting, poor oral intake and weight loss Follow-up echo Narrative: 52-year-old female with no significant past medical history who presented to the ER on account of diarrhea, vomiting, generalized weakness. [place] that this is been having polyuria, poor oral intake the last 2 weeks has lost about 30 lb over this duration. Also reported hip revision. Otherwise denies any chest pain no coughing focal weakness loss of consciousness. ER evaluation notable for blood sugar; 33, A1c 13.5, [place] hydroxybutyrate 6.8, patient was started on DKA protocol admitted to the ICU for critical care. Review of Systems Review of Systems: All other the systems reviewed and negative except as noted in the history above. [facility] Past Medical History Medical History (Updated 03/22/23 @ 09:48 by Erasto Estrada MD) Abnormal uterine bleeding Anemia Angina at rest Asthma Fibroids Heart murmur HLD (hyperlipidemia) HTN (hypertension) Lichen sclerosus Migraine During menstruation Uterine polyp Surgical History Surgical History H/O section Social History Social History Smoking status: Never smoker Alcohol intake: never Substance use: never Do You Feel Safe in your Home?: Yes Lack of Transportation: No Lack of Food: Never True Current Housing: I Have Housing Concerned About Future Housing: No Difficulty Paying Gas/Electric Bills: No Difficulty Paying for Meds: No Currently Unemployed: No Education: Decline to Answer Difficulty w/ Childcare or Family Care: No Gender identity (if verbalized by the patient): Female Spiritual care concerns: No Meds Home Medications and Allergies Home Medications Medication Instructions Recorded Confirmed Type multivitamin (Multiple Vitamins 1 tablet PO DAILY 07/23/19 03/22/23 History tablet) Allergies Allergy/AdvReac Type Severity Reaction Status Date / Time shellfish derived Allergy Severe THROAT Verified 03/03/23 15:40 SWELLING dextromethorphan Allergy Mild N/V, Verified 03/03/23 15:40 HEADACHE doxylamine Allergy Mild N/V, Verified 03/03/23 15:40 HEADACHE oxytocin Allergy Mild PAIN/SWELLING Verified 03/03/23 15:40 IN ARM Penicillins Allergy Mild Unknown Verified 03/03/23 15:40 prochlorperazine Allergy Mild LOCK JAW Verified 03/03/23 15:40 pseudoephedrine Allergy Mild N/V, Verified 03/03/23 15:40 HEADACHE sulfamethoxazole Allergy Mild N/V, Verified 03/03/23 15:40 HEADACHE, RASH trimethoprim Allergy Mild Nausea and Verified 03/03/23 15:40 Vomiting Vital Signs Vital Signs - 24 hr 03/21/23 19:46 03/21/23 20:43 03/21/23 20:44 Temperature 97.7 F 97.7 F Pulse Rate 129 H 133 H 131 H Respiratory Rate 19 18 Blood Pressure 158/105 H 188/124 H Pulse Oximetry 98 98 Oxygen Delivery Room Air 03/21/23 22:34 03/22/23 00:15 03/22/23 01:20 Temperature Pulse Rate 123 H 119 H 114 H Respiratory Rate 18 17 14 Blood Pressure 193/102 H 184/101 H 155/77 H Pulse Oximetry 100 99 100 Oxygen Delivery 03/22/23 01:36 03/22/23 01:36 03/22/23 02:00 Temperature Pulse Rate 114 H 112 H 115 H Respiratory Rate 14 15 Blood Pressure Pulse Oximetry 100 Oxygen Delivery Room Air 03/22/23 02:00 03/22/23 03:01 03/22/23 04:00 Temperature Pulse Rate 115 H 112 H 112 H Respiratory Rate 16 18 Blood Pressure 152/81 H Pulse Oximetry 98 100 Oxygen Delivery Room Air 03/22/23 04:00 03/22/23 06:00 03/22/23 06:00 Temperature 98.5 F Pulse Rate 101 H 98 95 Respiratory Rate 16 18 Blood Pressure 141/87 H Pulse Oximetry 100 97 Oxygen Delivery 03/22/23 08:00 03/22/23 08:00 03/22/23 08:00 Temperature 98.3 F Pulse Rate 98 98 98 Respiratory Rate 12 12 Blood Pre
--- NOTE | 2023-03-22 18:05 | PC.NURSE ---
Patient transferred to [facility] per wheel chair. All belongings sent. Report given to SHEFALI Saini. All questions answered.
[2023-03-22 21:40] LABS: Glucose Point of Care 349 mg/dl (65-105)
[2023-03-23 05:29] VITALS: BP 163/100; PULSE 63; RESP 18; TEMP 36.6; O2SAT 96
[2023-03-23 06:58] LABS: Basophils Absolute Auto 0.1 K/mm3 (0.0-0.1); Eosinophils Absolute Auto 0.6 K/mm3 (0-0.3); Eosinophils Percent Auto 8.2 % (0-4.4); Hematocrit 43.3 % (37.0-47.0); Hemoglobin 13.3 g/dL (12.0-15.0); Immature Granulocyte Absolute 0.02 K/mm3 (0.00-0.031); Immature Granulocyte Percent A 0.3 % (0-0.5); Lymphocytes Absolute Auto 3.26 K/mm3 (0.9-3.2); Lymphocytes Percent Auto 42.4 % (18.3-44.2); Mean Corpuscular HGB Conc 30.7 g/dl (32-36); Mean Corpuscular Hemoglobin 26.3 pg (26-34); Mean Corpuscular Volume 85.6 fl (80-100); Mean Platelet Volume 12.3 fl (7.4-10.4); Monocytes Absolute Auto 0.6 K/mm3 (0.1-0.6); Monocytes Percent Auto 8.1 % (2.6-8.5); Neutrophils Absolute Auto 3.1 K/mm3 (1.3-6.7); Platelet Count Result 256 k/mm3 (150-375); Red Blood Count 5.06 M/mm3 (4.2-5.4); Red Cell Distribution Width 15.1 % (11.5-14.5); White Blood Count 7.7 K/mm3 (4.5-10.0)
[2023-03-23 07:13] LABS: Alanine Aminotransferase 31 U/L (6-35); Albumin Level 3.8 g/dL (3.5-5.1); Alkaline Phosphatase 108 U/L (38-126); Anion Gap 13 mmol/L (8-16); Aspartate Amino Transferase 34 U/L (14-36); Bilirubin,Total 0.9 mg/dL (0.2-1.3); Blood Urea Nitrogen 10 mg/dL (7-17); Calcium 8.8 mg/dL (8.4-10.2); Carbon Dioxide 17 mmol/L (22-30); Chloride 110 mmol/L (98-107); Estimated CRCL calculation 103 ml/min; Estimated Glomerular Filt Rate > 60; Glucose 345 mg/dL (65-110); Magnesium 2.2 mg/dL (1.6-2.3); Phosphorus 2.7 mg/dL (2.5-4.5); Sodium 140 mmol/L (137-145)
[2023-03-23 07:26] LABS: Potassium 3.6 mmol/L (3.4-5.0)
[2023-03-23 07:41] LABS: Glucose Point of Care 316 mg/dl (65-105)
[2023-03-23 09:32] VITALS: O2SAT 98
[2023-03-23] MEDS: INSULIN GLARGINE (*BKC) 100 UNITS/ML 30 UNITS SUB-Q (10:12)
[2023-03-23] MEDS: INSULIN ASPART (*BKC) 100 UNITS/ML SUB-Q ×4 (10:14→20:53)
[2023-03-23] MEDS: ENOXAPARIN 40 MG/0.4 ML SYRINGE SUB-Q (10:15)
[2023-03-23 11:03] LABS: Glucose Point of Care > 500 mg/dl (65-105)
[2023-03-23 11:09] LABS: Glucose Point of Care > 500 mg/dl (65-105)
[2023-03-23 13:18] LABS: Glucose Point of Care > 500 mg/dl (65-105)
--- NOTE | 2023-03-23 14:21 | PC.NURSE ---
Provider to bedside while this RN doing initial assessment. Pt BG > 300 so MD decided to keep another day. Call to clinical staff educator requesting additional education. Georgette states she will be by shortly. Pt provided with pt instructions on multiple DM aspects. Pt lunch BS first read high. Tried a different glucometer and second site which read 564. Provider made aware; requested additional insulin. Provider stated to use high slide. This RN reaffirmed that it would result in only 8 units of novolog being given. Provider agreed. He stated he would add premeal insulin. Recheck one hour after administering 8u novolog. BG 504. Again called provider. Provider stated he would address pt insulin but said that no need for action to be taken at this time. Will continue to monitor glucose.
[2023-03-23 14:33] VITALS: BP 153/80; PULSE 104; RESP 18; TEMP 36.8; O2SAT 100
--- NOTE | 2023-03-23 14:37 | PM.IMPN ---
Progress Note: A&P Assessment and Plan (1) Diabetes mellitus, new onset: Code(s): E11.9 - Type 2 diabetes mellitus without complications Status: Acute Assessment and Plan: A1c 13.5 s/p DKA protocol continue Lantus 30 units , premeal 8 u and continue SSI \ continue adjustment serum insulin, C peptide, tyrosine phosphatase, GAD65, Zinc transporter Ab pending (2) Diabetic ketoacidosis: Code(s): E11.10 - Type 2 diabetes mellitus with ketoacidosis without coma Status: Acute Assessment and Plan: continue above care (3) Asthma: Code(s): J45.909 - Unspecified asthma, uncomplicated Status: Acute Assessment and Plan: stable, no bronchodilator Subjective Date/time seen: 03/23/23 14:37 Interval history: patient comfortable at bedside Blood sugar running high, adjusted to premeal insulin continue SSI Review of Systems Review of Systems: All other the systems reviewed and negative except as noted in the history above. All systems reviewed & are unremarkable except as noted in HPI and below Exam Narrative: General: Very pleasant female in no acute distress HEENT:? Pupils equal and reactive, sclera is clear, moist oral mucosa Neck:? Supple Respiratory:? Clear to auscultation bilaterally no wheezing, adequate air entry Cardiac:? S1-S2 normal, regular rate and rhythm Abdomen:? Soft, nontender, nondistended, normoactive bowel sounds Extremities:? No edema, palpable pedal pulses Neuro:? Patient is awake, alert, oriented, nonfocal Skin:? No skin lesions noted, Psych:? Normal mentation and affect Const: General: comfortable HENMT: Ears: TM's normal bilaterally Face/Nose/Sinus: Normal nares present Eyes: General: appearance normal, both eyes and all related structures Neck: Neck: supple Resp: Effort & Inspection: normal respiratory effort Cardio: Rate: regular rate Rhythm: regular rhythm GI: GI Palp: Yes Soft to palpation Skin: General skin exam: normal color Neuro: General: gait normal Speech: normal speech Motor exam (neuro): 5/5 motor strength present throughout Sensory Exam: normal sensation Extrem: General: normal to inspection Psych: Affect: normal affect Objective Data Vital Signs Vital Signs: Vital Signs - 24 hr 03/22/23 16:00 03/22/23 16:00 03/22/23 20:10 Temperature 98.4 F Pulse Rate 98 98 Respiratory Rate 20 Blood Pressure 153/94 H Pulse Oximetry Oxygen Delivery Room Air 03/22/23 22:07 03/23/23 05:29 03/23/23 09:32 Temperature 98.2 F 97.9 F Pulse Rate 97 63 Respiratory Rate 18 18 Blood Pressure 178/67 H 163/100 H Pulse Oximetry 100 96 98 Oxygen Delivery Room Air 03/23/23 14:33 Temperature 98.3 F Pulse Rate 104 H Respiratory Rate 18 Blood Pressure 153/80 H Pulse Oximetry 100 Oxygen Delivery Intake/Output Intake/Output: Intake & Output 03/20/23 03/21/23 03/22/23 03/23/23 23:59 23:59 23:59 23:59 Intake Total 3010 2200 1216 Output Total 800 Balance 3010 1400 1216 Meds/Results Medications: Active Medications Generic Name Dose Route Start Last Admin Trade Name Freq PRN Reason Stop Dose Admin Acetaminophen 650 mg 03/21/23 23:20 Acetaminophen 325 Mg Tablet PO Q4H PRN Mild Pain (1-3) or Fever Dextrose 12.5 gm 03/22/23 09:34 Dextrose 50% 25 Gm/50 Ml Syringe IV PUSH PRN PRN Hypoglycemia Protocol Enoxaparin Sodium 40 mg 03/22/23 09:55 03/23/23 10:15 Enoxaparin 40 Mg/0.4 Ml Syringe SUB-Q 40 mg DAILY NIRU Administration Glucagon 1 mg 03/22/23 09:34 Glucagon For Inj 1 Mg Vial IM PRN PRN Hypoglycemia Protocol Glucose 15 gm 03/22/23 09:34 Glucose Oral Gel 15 Gm Of Glucse In 37.5 Gm Tube PO PRN PRN Hypoglycemia Protocol Dextrose 1,000 mls @ 100 mls/hr 03/22/23 09:34 Dextrose 5% 1,000 Ml IVPB PRN PRN Hypoglycemia Protocol Insulin Aspart 2 - 4 units
[2023-03-23 15:16] LABS: Glucose Point of Care 349 mg/dl (65-105)
[2023-03-23 15:30] VITALS: BMI 37.3
[2023-03-23 16:43] LABS: Glucose Point of Care 280 mg/dl (65-105)
[2023-03-23] MEDS: INSULIN ASPART (*BKC) 100 UNITS/ML 8 UNITS SUB-Q (17:17)
[2023-03-23 20:00] VITALS: O2SAT 98
[2023-03-23 20:36] VITALS: BP 150/99; PULSE 102; RESP 18; TEMP 36.8; O2SAT 100
[2023-03-23 22:11] LABS: Glucose Point of Care 310 mg/dl (65-105)
[2023-03-23] MEDS: ACETAMINOPHEN 325 MG TABLET 650 MG PO (23:33)
--- NOTE | 2023-03-23 23:40 | PC.NURSE ---
called RICHELLE Rajput and MD Beckwith for patient regarding pain in vaginal area. Patient reports she has boil on vaginal area, patient would not let nurse look at it. Patient states it is very painful.
--- NOTE | 2023-03-23 23:51 | PC.NURSE ---
reported patient's stating that she has a boil on her vaginal area, and that she refused to let me look at it. norco 5/325 mg PO once for pain.
[2023-03-24 04:29] VITALS: BP 153/89; PULSE 99; RESP 18; TEMP 36.7; O2SAT 99
[2023-03-24 07:18] LABS: Basophils Absolute Auto 0.1 K/mm3 (0.0-0.1); Basophils Percent Auto 0.9 % (0.2-1.2); Eosinophils Absolute Auto 0.5 K/mm3 (0-0.3); Eosinophils Percent Auto 6.3 % (0-4.4); Hemoglobin 12.9 g/dL (12.0-15.0); Immature Granulocyte Absolute 0.02 K/mm3 (0.00-0.031); Immature Granulocyte Percent A 0.3 % (0-0.5); Lymphocytes Absolute Auto 2.53 K/mm3 (0.9-3.2); Lymphocytes Percent Auto 32.6 % (18.3-44.2); Mean Corpuscular HGB Conc 30.7 g/dl (32-36); Mean Corpuscular Hemoglobin 26.1 pg (26-34); Mean Corpuscular Volume 84.8 fl (80-100); Monocytes Absolute Auto 0.7 K/mm3 (0.1-0.6); Monocytes Percent Auto 8.4 % (2.6-8.5); Neutrophils Percent Auto 51.5 % (45.5-73.1); Platelet Count Result 228 k/mm3 (150-375); Red Blood Count 4.95 M/mm3 (4.2-5.4); Red Cell Distribution Width 14.5 % (11.5-14.5); White Blood Count 7.8 K/mm3 (4.5-10.0)
[2023-03-24 07:26] LABS: Alanine Aminotransferase 32 U/L (6-35); Albumin Level 3.8 g/dL (3.5-5.1); Alkaline Phosphatase 104 U/L (38-126); Anion Gap 11 mmol/L (8-16); Aspartate Amino Transferase 37 U/L (14-36); Bilirubin,Total 0.8 mg/dL (0.2-1.3); Blood Urea Nitrogen 8 mg/dL (7-17); Calcium 8.7 mg/dL (8.4-10.2); Carbon Dioxide 19 mmol/L (22-30); Chloride 103 mmol/L (98-107); Estimated CRCL calculation 103 ml/min; Estimated Glomerular Filt Rate > 60; Glucose 291 mg/dL (65-110); Potassium 3.1 mmol/L (3.4-5.0); Sodium 133 mmol/L (137-145)
[2023-03-24 07:43] LABS: Glucose Point of Care 272 mg/dl (65-105)
[2023-03-24 08:00] VITALS: O2SAT 98
[2023-03-24] MEDS: INSULIN GLARGINE (*BKC) 100 UNITS/ML 30 UNITS SUB-Q (09:24)
[2023-03-24] MEDS: INSULIN ASPART (*BKC) 100 UNITS/ML 8 UNITS SUB-Q ×2 (09:25→11:51)
[2023-03-24] MEDS: INSULIN ASPART (*BKC) 100 UNITS/ML SUB-Q ×4 (09:26→20:41)
[2023-03-24] MEDS: ENOXAPARIN 40 MG/0.4 ML SYRINGE SUB-Q (09:26)
[2023-03-24] MEDS: ACETAMINOPHEN 325 MG TABLET 650 MG PO (09:27)
[2023-03-24 11:28] LABS: Glucose Point of Care 301 mg/dl (65-105)
[2023-03-24] MEDS: POTASSIUM CHLORIDE 20 MEQ ER TABLET 40 MEQ PO (11:50)
--- NOTE | 2023-03-24 11:58 | WPDCN ---
Assessment and Plan Assessment and plan (1) Infected sebaceous cyst: Code(s): L72.3 - Sebaceous cyst; L08.9 - Local infection of the skin and subcutaneous tissue, unspecified Status: Acute Assessment and Plan: No systemic symptoms. Normal WBC. Bacterial culture of area obtained. Incised/drained and packed. Will start Cleocin since she is allergic to Bactrim/pcn. Wound consult ordered. HPI Data of Consult Date/Time: 03/24/23 11:58 Requesting Physician: Jocelyn Beckwith MD Primary Care Provider: CRUISE DIRECTOR PHYSICIAN Consult Narrative Reason for consult: Groin lesion Narrative: Isis Fontana is a 52 year old female with complaints of noticing a bump 3-4 days ago at groin that was small and has gotten bigger and more painful and started draining yellow discharge yesterday and is very tender today. She denies any h/o sebaceous cyst. She was recently diagnosed with DM. WBC normal. PMFSH Past Medical History Medical History (Updated 03/24/23 @ 12:04 by Ned Villanueva MD) Abnormal uterine bleeding Anemia Angina at rest Asthma Fibroids Heart murmur HLD (hyperlipidemia) HTN (hypertension) Lichen sclerosus Migraine During menstruation Uterine polyp Surgical History Surgical History H/O section Social History Social History Smoking status: Never smoker Alcohol intake: never Substance use: never Do You Feel Safe in your Home?: Yes Lack of Transportation: No Lack of Food: Never True Current Housing: I Have Housing Concerned About Future Housing: No Difficulty Paying Gas/Electric Bills: No Difficulty Paying for Meds: No Currently Unemployed: No Education: Decline to Answer Difficulty w/ Childcare or Family Care: No Gender identity (if verbalized by the patient): Female Spiritual care concerns: No Meds Home Medications and Allergies Home Medications Medication Instructions Recorded Confirmed Type multivitamin (Multiple Vitamins 1 tablet PO DAILY 07/23/19 03/22/23 History tablet) Allergies Allergy/AdvReac Type Severity Reaction Status Date / Time shellfish derived Allergy Severe THROAT Verified 03/03/23 15:40 SWELLING dextromethorphan Allergy Mild N/V, Verified 03/03/23 15:40 HEADACHE doxylamine Allergy Mild N/V, Verified 03/03/23 15:40 HEADACHE oxytocin Allergy Mild PAIN/SWELLING Verified 03/03/23 15:40 IN ARM Penicillins Allergy Mild Unknown Verified 03/03/23 15:40 prochlorperazine Allergy Mild LOCK JAW Verified 03/03/23 15:40 pseudoephedrine Allergy Mild N/V, Verified 03/03/23 15:40 HEADACHE sulfamethoxazole Allergy Mild N/V, Verified 03/03/23 15:40 HEADACHE, RASH trimethoprim Allergy Mild Nausea and Verified 03/03/23 15:40 Vomiting Vital Signs Vital Signs - 24 hr 03/23/23 14:33 03/23/23 20:00 03/23/23 20:36 Temperature 98.3 F 98.3 F Pulse Rate 104 H 102 H Respiratory Rate 18 18 Blood Pressure 153/80 H 150/99 H Pulse Oximetry 100 98 100 Oxygen Delivery Room Air 03/24/23 04:29 Temperature 98.1 F Pulse Rate 99 Respiratory Rate 18 Blood Pressure 153/89 H Pulse Oximetry 99 Oxygen Delivery Exam : Other: right groin outer lab majora, small sl opened, no active drainage, topical lidocaine applied to area, betadine applied, fluctuance palpated, incision made over the area the was slightly opened, cultures obtained, mostly blood discharge, swollen area decreased, packed with small amount of 2x2 gauze available and gauze placed on top Results Labs 03/24/23 07:03 03/24/23 07:03 Labs: Short CBC 03/24/23 Range/Units 07:03 WBC 7.8 (4.5-10.0) K/mm3 Hgb 12.9 (12.0-15.0) g/dL Hct 42.0 (37.0-47.0) % Plt Count 228 (150-375) k/mm3 BMP 03/24/23 07:03 Sodium 133 L Potassium 3.1
[2023-03-24] MEDS: LIDOCAINE/PRILOCAINE CREAM 2.5-2.5% TUBE 1 EACH TOPICAL (12:30)
[2023-03-24] MEDS: HYDROcodone/acetaminophen (*CRX) 5-325 MG TABLET 1 TAB PO ×2 (12:36→20:48)
[2023-03-24] MEDS: CLINDAMYCIN HCL 150 MG CAP 300 MG PO ×2 (12:38→16:56)
[2023-03-24 13:58] VITALS: BP 136/79; PULSE 105; RESP 18; TEMP 36.6; O2SAT 98
--- NOTE | 2023-03-24 15:12 | PM.IMPN ---
Progress Note: A&P Assessment and Plan (1) Infected sebaceous cyst: Code(s): L72.3 - Sebaceous cyst; L08.9 - Local infection of the skin and subcutaneous tissue, unspecified Status: Acute (2) Diabetes mellitus, new onset: Code(s): E11.9 - Type 2 diabetes mellitus without complications Status: Acute (3) Diabetic ketoacidosis: Code(s): E11.10 - Type 2 diabetes mellitus with ketoacidosis without coma Status: Acute Plan A pleasant 52-year-old female who has been noted to have no significant past medical history except COVID-19 in January 2023 presents with polyuria polydipsia and lethargy and fatigue nausea and vomiting with decreased p.o. intake and weight loss. She was admitted on 03/22/2023 with new onset diabetes mellitus diagnosis and DKA diagnosis with a blood sugar of 733 elevated anion gap and elevated beta hydroxybutyrate. On 03/24/2023 she has been transferred to the medical floor as her gap closed and per the DKA ICU protocol she was transitioned. She is on a long-acting insulin 30 units daily. Sugars are still uncontrolled so initiate insulin aspart 10 units t.i.d. with meals and continue sliding scale as well. Continue Accu-Cheks a.c. HS with hypoglycemia protocol. She had a small bump on admission but on 03/24/2023 complains that it is now very tender and she can barely walk because it is rubbing in her groin area. It has also spontaneously drained some pus. She is status post I and D from [facility] for this infected sebaceous cyst and wound cultures pending. Continue clindamycin. No signs of sepsis she is feeling well otherwise and hemodynamically stable. Will continue to monitor sugars with the increase insulin. Diabetic teaching has been ordered and she will likely have to go home on insulin. And have close follow-up with primary care at the least and maybe endocrinology. Hemoglobin on admission 13.5 %. Pending serum insulin C-peptide tyrosine phosphatase RENE 65 and zinc transporter antibody. FEN: Saline lock IV, diabetic diet GI prophylaxis: Not indicated DVT prophylaxis: Lovenox Lines: Peripheral IV Code Status: Full code Dispo: Stable Subjective Date/time seen: 03/24/23 15:12 Interval history: No acute overnight events. Patient complains of a infected cyst in the groin area. She otherwise denies complaints. Review of Systems Review of Systems: All systems reviewed & are unremarkable except as noted in HPI and below (Subjective) Exam Const: General: comfortable and no acute distress Other: A&O x3. Accompanied by and nurse while examination taking place. Eyes: Pupils: Equal, round and reactive pupils present Neck: Neck: supple Resp: Effort & Inspection: normal respiratory effort Auscultation: clear to auscultation bilaterally Cardio: Rate: regular rate Rhythm: regular rhythm GI: GI Palp: Yes Soft to palpation and No Tenderness to palpation present (GI) Skin: Other: Just lateral to the right labia majora there is a fluctuant mass palpated which is having slight exsanguination. Tender to palpation. Extrem: General: no edema Objective Data Vital Signs Vital Signs: Vital Signs - 24 hr 03/23/23 20:00 03/23/23 20:36 03/24/23 04:29 Temperature 98.3 F 98.1 F Pulse Rate 102 H 99 Respiratory Rate 18 18 Blood Pressure 150/99 H 153/89 H Pulse Oximetry 98 100 99 Oxygen Delivery Room Air 03/24/23 13:58 Temperature 97.9 F Pulse Rate 105 H Respiratory Rate 18 Blood Pressure 136/79 Pulse Oximetry 98 Oxygen Delivery Intake/Output Intake/Output: Intake & Output 03/21/23 03/22/23 03/23/23 03/24/23 23:59 23:59 23:59 23:59 Intake Total 3010 2200 3786 358 Output Total 800 Balance 3010 1400 3786 358 Meds/Results Medications: Active Medications Generic Name Dose Route Start Last Admin Trade Name Freq PRN Reason Stop Dose Admin Acetaminophen 650 mg 03/21/23 23:20 03/24/23 09:27
[2023-03-24 16:30] LABS: Glucose Point of Care 307 mg/dl (65-105)
[2023-03-24] MEDS: INSULIN ASPART (*BKC) 100 UNITS/ML 10 UNITS SUB-Q (16:53)
[2023-03-24 20:00] VITALS: RESP 18; O2SAT 98
[2023-03-24 20:27] LABS: Glucose Point of Care 234 mg/dl (65-105)
[2023-03-24 22:00] VITALS: BP 159/90; PULSE 104; RESP 20; TEMP 36.3; O2SAT 99
[2023-03-25] MEDS: CLINDAMYCIN HCL 150 MG CAP 300 MG PO ×4 (00:33→16:51)
[2023-03-25 06:00] VITALS: BP 138/84; PULSE 89; RESP 18; TEMP 36.6; O2SAT 99
[2023-03-25 07:56] LABS: Glucose Point of Care 292 mg/dl (65-105)
[2023-03-25] MEDS: INSULIN GLARGINE (*BKC) 100 UNITS/ML 30 UNITS SUB-Q (08:34)
[2023-03-25] MEDS: INSULIN ASPART (*BKC) 100 UNITS/ML 10 UNITS SUB-Q ×3 (08:34→16:49)
[2023-03-25] MEDS: INSULIN ASPART (*BKC) 100 UNITS/ML SUB-Q ×3 (08:35→16:49)
[2023-03-25] MEDS: ENOXAPARIN 40 MG/0.4 ML SYRINGE SUB-Q (08:39)
--- NOTE | 2023-03-25 09:53 | PM.GYNPNOP ---
SWATCH CUTTER - A/P Assessment and plan (1) Infected sebaceous cyst: Code(s): L72.3 - Sebaceous cyst; L08.9 - Local infection of the skin and subcutaneous tissue, unspecified Status: Acute Assessment and Plan: Doing well. Wound consult appreciated. Patient states they are going to instruct her spouse on wound care at home. Continue antibiotics. She can follow up with me in a week. Call for increasing pain or swelling. Time Spent With Patient Time: Total time spent is greater than 50% in coordination of care (as documented) at patient's floor/unit and/or counseling patient: Time with patient: less than 15 minutes SWATCH CUTTER- PN:Subj Post-Op Subjective Date/time seen: 03/25/23 09:53 Interval history: She denies pain at I and D site. She feels much better. Exam Const: General: comfortable and no acute distress Resp: Effort & Inspection: normal respiratory effort : Other: cyst area less swollen, packing intact, no drainage SWATCH CUTTER - PN: Obj Data Vital Signs Vital Signs: Vital Signs - 24 hr 03/24/23 13:58 03/24/23 20:00 03/24/23 22:00 Temperature 97.9 F 97.3 F L Pulse Rate 105 H 104 H Respiratory Rate 18 18 20 Blood Pressure 136/79 159/90 H Pulse Oximetry 98 98 99 Oxygen Delivery Room Air 03/25/23 06:00 03/25/23 08:35 Temperature 97.9 F Pulse Rate 89 Respiratory Rate 18 Blood Pressure 138/84 Pulse Oximetry 99 Oxygen Delivery Room Air Intake/Output Intake/Output: Intake & Output 03/22/23 03/23/23 03/24/23 03/25/23 23:59 23:59 23:59 23:59 Intake Total 2200 3786 1658 570 Output Total 800 Balance 1400 3786 1658 570 Meds/Results Medications: Active Medications Generic Name Dose Route Start Last Admin Trade Name Freq PRN Reason Stop Dose Admin Acetaminophen 650 mg 03/21/23 23:20 03/24/23 09:27 Acetaminophen 325 Mg Tablet PO 650 mg Q4H PRN Administration Mild Pain (1-3) or Fever Hydrocodone Bitart/Acetaminophen 1 tab 03/24/23 11:45 03/24/23 20:48 Hydrocodone/Acetaminophen (*Crx) 5-325 Mg Tablet PO 1 tab Q4H PRN Administration Pain Rated 4-6 Clindamycin HCl 300 mg 03/24/23 12:20 03/25/23 06:18 Clindamycin Hcl 150 Mg Cap PO 300 mg Q6HR NIRU Administration Dextrose 12.5 gm 03/22/23 09:34 Dextrose 50% 25 Gm/50 Ml Syringe IV PUSH PRN PRN Hypoglycemia Protocol Enoxaparin Sodium 40 mg 03/22/23 09:55 03/25/23 08:39 Enoxaparin 40 Mg/0.4 Ml Syringe SUB-Q 40 mg DAILY NIRU Administration Glucagon 1 mg 03/22/23 09:34 Glucagon For Inj 1 Mg Vial IM PRN PRN Hypoglycemia Protocol Glucose 15 gm 03/22/23 09:34 Glucose Oral Gel 15 Gm Of Glucse In 37.5 Gm Tube PO PRN PRN Hypoglycemia Protocol Dextrose 1,000 mls @ 100 mls/hr 03/22/23 09:34 Dextrose 5% 1,000 Ml IVPB PRN PRN Hypoglycemia Protocol Insulin Aspart 2 - 4 units 03/22/23 21:00 03/24/23 20:41 Insulin Aspart (*Bkc) 100 Units/Ml SUB-Q 2 units HS NIRU Administration Protocol Insulin Aspart 4 - 8 units 03/22/23 12:00 03/25/23 08:35 Insulin Aspart (*Bkc) 100 Units/Ml SUB-Q 5 units TIDWM NIRU Administration Protocol Insulin Aspart 10 units 03/24/23 17:00 03/25/23 08:34 Insulin Aspart (*Bkc) 100 Units/Ml SUB-Q 10 units TIDWM NIRU Administration Insulin Glargine 30 units 03/22/23 09:34 03/25/23 08:34 Insulin Glargine (*Bkc) 100 Units/Ml SUB-Q 30 units DAILY NIRU Administration Levalbuterol HCl 1.25 mg 03/22/23 01:10 03/22/23 01:36 Levalbuterol Neb 1.25 Mg/3 Ml INHALATION 1.25 mg Q6HRT PRN Administration Shortness Of Breath Ondansetron HCl 4 mg 03/21/23 23:20 03/22/23 03:30 Ondansetron Inj 4 Mg/2 Ml Vial IV PUSH 4 mg Q4H PRN Administration Nausea Radiology Results: ITS Impressions Chest X-Ray 02/07/24 17:52 IMPRESSION: 1. No acute cardiopulmonary disease. Labs 03/24/23 07:03 0
[2023-03-25 12:09] LABS: Glucose Point of Care 308 mg/dl (65-105)
--- NOTE | 2023-03-25 13:41 | PM.DS ---
DS: Admitting Diagnosis Discharge Date March 25, 2023 Admitting Diagnosis DKA DS: Discharge Diagnosis Discharge Diagnosis (1) Infected sebaceous cyst: Code(s): L72.3 - Sebaceous cyst; L08.9 - Local infection of the skin and subcutaneous tissue, unspecified Status: Acute (2) Diabetes mellitus, new onset: Code(s): E11.9 - Type 2 diabetes mellitus without complications Status: Acute (3) Diabetic ketoacidosis: Code(s): E11.10 - Type 2 diabetes mellitus with ketoacidosis without coma Status: Acute (4) Obesity: Code(s): E66.9 - Obesity, unspecified Status: Acute DS: Summary Hospital Course Hospital Course: A pleasant 52-year-old female noted to have no significant past medical history except COVID in January of 2023 presented with polyuria polydipsia lethargic fatigue nausea and vomiting and weight loss. He was admitted 11/10/2023 with new onset diabetes mellitus diagnosis and DKA. She was treated per the DKA protocol and her DKA resolved. She was transition to long-acting insulin and mealtime insulin. On 03/25/2023 blood sugars are in the high 200s. She is discharged home with Lantus 33 units at night and lispro 12 units with meals. Lengthy discussion about disease course, adverse effects, hypoglycemia and hyperglycemia, important follow-up, lifestyle modification, held with the patient and her . They understood and all questions were answered to satisfaction and they were agreeable to the plan. Hemoglobin was 13.5 on admission and inclusion special educator therapy has been ordered. The patient will establish new care with Dr. Villafuerte and I advised they do this within a week. He has also been prescribed a [employer] Alicia 3 system and is to report hypoglycemia or severe hyperglycemia to PCP. She was also treated for a infected sebaceous cyst with [facility] with an I&D. Wound cultures are still pending however she will be discharged home on clindamycin per [facility]. She has follow-up with them as well. The patient was full code during her admission. Time Spent with Patient Time attestation: Total time spent providing and/or coordinating discharge services: Exam Const: General: cooperative and no acute distress Other: Obese Resp: Effort & Inspection: normal respiratory effort Auscultation: clear to auscultation bilaterally Cardio: Rate: regular rate Rhythm: regular rhythm Heart sounds: S1 normal heart sound present and S2 normal heart sound present GI: GI Palp: No abdominal tenderness Auscultation: normal bowel sounds DS: Data Data Completed and Pending Labs on day of discharge: Labs from last 24 hours 03/25/23 03/25/23 03/24/23 11:51 07:50 19:40 POC Capillary Glucose 308 H 292 H 234 H 03/24/23 16:27 POC Capillary Glucose 307 H Discharge Plan Discharge Attending physician on discharge: Christie Lay Consulting providers: Gorge Michelle; Erasto Estrada; Ned Villanueva Discharging Clinician: Christie Lay Patient Disposition: Home, Self-Care Activity: june shower Diet: heart healthy and diabetic Discharge Instructions: DKA Patient Instructions: Antibiotic Form, Diabetic Ketoacidosis (GEN), Hypoglycemia in a Person with Diabetes (DC), Hypoglycemia in a Person with Diabetes (GEN), Type 2 Diabetes in Adults: New Diagnosis (GEN), Basic Carbohydrate Counting (DC), Diabetes and Nutrition (GEN), Diabetes and Exercise (GEN), Type 2 Diabetes Management for Adults (GEN) Patient Language: [place]an Stand Alone Forms: General Discharge Information Follow-up/Referrals: PHYSICIAN,BOILER ROOM OPERATOR [Primary Care Provider] - 1 Week Discharge Medications: New clindamycin HCl 150 mg Capsule 300 mg PO Q6HR 7 Days Qty: 56 0RF (DME) [employer]Style Alicia 3 Sensor Device See Rx Instructions .Route Qty: 1 0RF Rx Instructions: As directed insulin aspart U-100 100 unit/mL (3 mL) insulin pen 12 unit subcut
[2023-03-25 14:00] VITALS: BP 145/80; PULSE 101; RESP 18; TEMP 36.2; O2SAT 99
[2023-03-25 16:52] LABS: Glucose Point of Care 297 mg/dl (65-105)
[2023-03-26 05:05] LABS: C-Peptide 1.42 ng/mL (0.80-3.85); Insulin Level Total 9.1 uIU/mL (<=18.4)
[2023-03-30 03:15] LABS: Zinc Transporter 8 Antibody <10 U/mL (<15)
== END 2023-03-25 17:25 | disposition home or self-care (01) | DRG 420 ==
LOC: ANHED 23:20 → ANHICU 03-22 00:03 → ANH3MEDSUR 03-22 18:14
PROVIDERS: Emergency Medicine; Internal Medicine; Admitting Provider Internal Medicine; Emergency Provider Emergency Medicine; Visit Provider General Practice
DX: E11.10 Type 2 diabetes mellitus with ketoacidosis without coma (principal); L72.3 Sebaceous cyst; L08.9 Local infection of the skin and subcutaneous tissue, unspecified; I10 Essential (primary) hypertension; E78.5 Hyperlipidemia, unspecified; D64.9 Anemia, unspecified; J45.909 Unspecified asthma, uncomplicated; E66.9 Obesity, unspecified; Z68.37 Body mass index [BMI] 37.0-37.9, adult; Z86.16 Personal history of COVID-19
CPT/HCPCS: 36415; 36600; 71046; 80048; 80053; 81001; 81025; 82010; 82805; 82948; 83036; 83525; 83690; 83735; 84100; 84681; 85025; 86341; 87070; 87075; 87205; 87641; 94640; 96361; 96365; 96366; 96367; 96375; 99285; A9270; G0378; G0379; J1650; J1815; J2405; J3480; J7030